=== PATIENT | male | born 1950 | race Hispanic/Latino ===

== ENCOUNTER 2018-08-08 16:07 | Inpatient (IN) | payer MEDICARE, SELFPAY ==
[~2018-08-08 16:07] MED LIST: ISOVUE-370 76%-LOCM 1 ML ONE
[2018-08-08 16:25] LABS: #Basophils 0.1 thou/uL (0.0-0.2); #Eosinphils 0.1 thou/uL (0.0-0.7); #Lymphocytes 0.9 thou/uL (1.20-3.40); #Monocytes 0.3 thou/uL (0.11-0.59); #Neutrophils 8.3 thou/uL (1.40-6.50); %Basophils 0.6 % (0.0-1.0); %Eosinophils 0.5 % (0.0-10.0); %Lymphocytes 9.3 % (21.0-51.0); %Monocytes 3.6 % (0.0-10.0); %Neutrophils 86.1 % (42.0-75.0); Hemoglobin 14.4 g/dL (14.0-18.0); Mean Corpuscular HGB CONC 32.9 g/dL (32.0-36.0); Mean Corpuscular Hemoglobin 30.1 pg (27.0-31.0); Mean Corpuscular Volume 91.6 fL (78.0-98.0); Mean Platelet Volume 7.7 fL (7.4-10.4); Platelet Count 262 thou/uL (130-400); RBC Distribution Width 11.8 % (11.5-14.5); Red Blood Cell (RBC) Count 4.77 mill/uL (4.70-6.10); White Blood Cell (WBC) Count 9.6 thou/uL (4.8-10.8)
--- NOTE | 2018-08-08 16:31 | CT ---
CT BRAIN NONCONTRAST: DATE: 08/08/18 TIME: 1621 hours HISTORY: Male patient of unknown age with altered mental status, confusion, right upper extremity drift, and a phasia. Dr. West verbally gave this Level II stroke alert protocol STAT to Dr. Andre Ramirez of the emergency department at 1624 hours on 08/08/18. FINDINGS: There is no midline shift or any other mass effect. There is no evidence of acute intracranial hemor rhage, large cortical infarct, obstructive hydrocephalus, or extraaxial fluid collection. The calvar ium is intact. IMPRESSION: No acute intracranial findings. CODE CR. jn [] POS: [facility]
[2018-08-08 16:32] LABS: PTT 33.5 SEC (22.9-36.1); Prothrombin Time 13.8 SEC (12.0-14.7)
[2018-08-08 16:35] LABS: INR-International Normal Ratio 1.1
[2018-08-08 16:43] LABS: ALT (SGPT) 15 U/L (8-55); AST (SGOT) 15 U/L (5-34); Albumin 4.4 g/dL (3.4-4.8); Alkaline Phosphatase 101 U/L (40-150); Anion Gap 20 mmol/L (10-20); BUN (Urea Nitrogen) 24 mg/dL (8.4-25.7); Bilirubin, Total 0.4 mg/dL (0.2-1.2); CK (CPK) 166 U/L (30-200); Calc. Creatinine Clearance 0 mL/min (70-130); Carbon Dioxide 15 mmol/L (23-31); Chloride 107 mmol/L (98-107); Estimated GFR-MDRD 59; Globulin 2.9 g/dL (2.4-3.5); Glucose 355 mg/dL (80-115); Lipase 29 U/L (8-78); Protein, Total 7.3 g/dL (5.8-8.1); Sodium 137 mmol/L (136-145)
[2018-08-08 16:46] LABS: CKMB 1.7 ng/mL (0-6.6); Troponin I Less than 0.010 ng/mL (< 0.028)
--- NOTE | 2018-08-08 16:54 | CT ---
CTA HEAD AND NECK UTILIZING IV CONTRAST AND 3D REFORMATTED IMAGING: INDICATIONS: Level 2 stroke alert with altered mental status, found walking and stumbling alongside the highway, w ith right upper extremity drift and aphasia. COMPARISON: Noncontrast CT brain dated 08/08/2018. FINDINGS: No large vessel intracranial occlusion is evident. No definite hemodynamically significant stenosis, occlusion, or aneurysmal formation is demonstrated. The right vertebral artery is diminutive. The visualized basilar is patent. The hand spring repairer appear patent. No area of abnormal enhancement is demonstrat ed. There is mild to moderate atherosclerotic irregularity involving the left carotid bulb and the proxim al left internal carotid artery. Mild atherosclerotic irregularity involving the right carotid bulb and proximal right internal carotid artery. Common carotids appear patent bilaterally. Left subclav desi and right subclavian appear patent. Vertebral arteries along their cervical course appear patent . Parotid and submandibular glands are normal appearing. The visualized aerodigestive tract appears wi thin normal limits. There is scattered degenerative and osteoarthritic change. No definite acute os seous abnormality is evident. The right [place] lens has been replaced. The left [place] lens is norm al appearing. The lung apices are clear. IMPRESSION: 1. No hemodynamically significant stenosis, occlusion, or aneurysmal formation demonstrated. 2. Mild to moderate atherosclerotic irregularity involving the left carotid bulb and the left proxim al and left internal carotid arteries. 3. 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 POS: [facility]
--- NOTE | 2018-08-08 17:39 | RAD ---
CHEST ONE VIEW: Indication: Stoke alert. Comparison: None. FINDINGS: There are low lung volumes and bibasilar atelectasis. No consolidation, pleural effusion, or pneumoth orax is evident. No acute osseous abnormality is evident. IMPRESSION: Low lung volumes. POS: [facility]
[2018-08-08] MEDS ORDERED: Aspirin Chewable 81 MG TAB ONE (18:26)
[2018-08-08] MEDS ORDERED: Insulin Regular 300 UNITS/3 ML VIAL ONE (19:30)
[2018-08-08 20:15] LABS: Troponin I Less than 0.010 ng/mL (< 0.028)
[2018-08-08] MEDS ORDERED: Ondansetron ODT 4 MG TAB SL PRN (20:49)
[2018-08-08] MEDS ORDERED: Ondansetron PF 4 MG/2 ML Vial IVP PRN (20:49)
[2018-08-08] MEDS: Sodium Chloride 0.9% 1,000 ML IV SCH (21:23)
[2018-08-08 22:24] LABS: Troponin I Less than 0.010 ng/mL (< 0.028)
[2018-08-09 00:43] VITALS: BMI 34.4
[2018-08-09] MEDS ORDERED: Dextrose 5% in Water 1,000 ML IV PRN (02:04)
[2018-08-09] MEDS ORDERED: Dextrose 50% Abboject 50 ML SYRINGE SLOW IVP PRN (02:04)
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
[2018-08-09] MEDS: Sodium Chloride 0.9% 1,000 ML IV SCH (05:18)
[2018-08-09] MEDS: HumaLOG 300 UNITS/3 ML VIAL SC PRN ×4 (06:10→21:26)
[2018-08-09 06:35] LABS: Hemoglobin A1c 14.1 % (4.0-6.0)
[2018-08-09 06:43] LABS: Cardiac Risk 5.4 (Less than 4.5)
[2018-08-09 06:47] LABS: Bilirubin Negative (Negative); Blood, Urine Negative (Negative); Clarity CLEAR (Clear); Glucose, Urine (Dipstick) >=1000 mg/dL (Negative); Leukocyte Negative (Negative); Nitrite Negative (Negative); Protein, Urine (Dipstick) 30 mg/dL (Neg-Trace); Specific Gravity, Urine 1.034 (1.002-1.036); Urobilinogen 0.2 mg/dL (0.2-1.0)
[2018-08-09 06:50] LABS: Bacteria/HPF None Seen HPF (None Seen); Hyaline Casts/LPF 0-3 HYALINE CAST LPF (0-3 Hyaline); RBC/HPF 0-3 HPF (0-3); Squamous Epithelial 0-3 HPF (0-3); WBC/HPF 0-3 HPF (0-3)
[2018-08-09 07:02] LABS: Amphetamine Not Detected (NotDetected); Barbiturates Screen Not Detected (NotDetected); Benzodiazepine Screen Not Detected (NotDetected); Cocaine Metabolite Screen Not Detected (NotDetected); Medtox Control Line Valid? VALID (VALID); Medtox Reader # READER 4; Methadone Not Detected (NotDetected); Methamphetamine Not Detected (NotDetected); Opiate Screen Not Detected (NotDetected); Oxycodone Screen Not Detected (NotDetected); Phencyclidine (PCP) Not Detected (NotDetected); THC/Cannabinoid Screen Not Detected (NotDetected); Tricyclic Screen Not Detected (NotDetected)
[2018-08-09] MEDS: Aspirin 325 mg Enteric Coated Tablet PO SCH (09:14)
[2018-08-09] MEDS: Insulin Glargine 8 UNITS in Pre-Filled Syringe 1 EACH SC SCH (09:16)
--- NOTE | 2018-08-09 20:00 | MRI ---
NONCONTRAST MRI BRAIN: 08/09/18 HISTORY: Altered mental status and confusion. Right upper extremity drift, aphasia. FINDINGS: There are small focal areas of restricted diffusion within the water shed distributions of the left c erebral hemisphere predominantly in a supraventricular location suggesting recent infarction which ma y be related to embolic type phenomenon or hypoperfusion. Some of the signal abnormalities are cortic ally based, and other areas are within the white matter. No signal abnormalities are seen in the right cerebral hemisphere. The septum pellucidum and third ve ntricle are in the midline. The ventricular system is normal in size, shape and position. The distal right vertebral artery is smaller in caliber compared to the left vertebral artery flow void. Otherwi se appropriate flow voids demonstrated at the base of the brain. [place] lens on the right is not visualized. The globes otherwise have a normal appearance. Minimal mu cosal thickening is seen in a few ethmoidal air cells bilaterally. Skull base has a normal MRI appear ance. IMPRESSION: Scattered recent infarctions in the water shed distribution in a supraventricular location left cereb ral hemisphere which may be related to either embolic type phenomenon versus hypoperfusion. POS: [facility]
[2018-08-09] MEDS: Atorvastatin Calcium 40 MG TAB PO SCH (21:26)
--- NOTE | 2018-08-10 00:42 | CON ---
DATE OF CONSULTATION: 08/09/2018 NEUROLOGY CONSULTATION CONSULTING PHYSICIAN: Hospitalist Services. IMPRESSION: 1. Probable left MCA TIA. 2. Renal cell carcinoma with possible hypercoagulable state. 3. Hypertension. 4. Diabetes. PLAN: 1. Aspirin 325 mg per day. 2. Continue Lipitor. 3. Review echocardiogram. HISTORY OF PRESENT ILLNESS: Mr. Cabello is a 68-year-old gentleman with the above-noted problems. 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 When he got to the way station, he realized he could not find the words he needed to tell the person at the gate. He went ahead and tried to dump a load of the truck and realized that he could not remember, which switch controls the truck bed. He then decided he would try to get himself home. He was driving self until he got to around [place]. He apparently pulled the truck over and started walking. He has some patchy memories of all these events. He noted that when he got to the emergency room, he was having trouble using his right arm. His noted that he had very limited speech output. He had CT and CTA done, nothing remarkable was found. By around 3 o'clock in the afternoon, his symptoms cleared. They had started probably around 7 in the morning. He has never had anything like this before. He did not have any associated headache, nausea, vomiting or vertigo. His blood sugars were in the 200s. His toxicology screen was negative. PAST MEDICAL HISTORY: As listed above. ALLERGIES: SHELLFISH. SOCIAL HISTORY: No tobacco or alcohol use. FAMILY HISTORY: Noncontributory. MEDICATIONS: Medication list was reviewed. REVIEW OF SYSTEMS: Ten-system review of systems was otherwise negative. PHYSICAL EXAMINATION: GENERAL: He is a somewhat overweight elderly man, in no acute distress. VITAL SIGNS: Blood pressure 181/75, pulse 72, respirations 16, and temperature 97.7. HEENT: Pupils are equal and reactive. Conjunctiva clear. Oropharynx clear. NECK: Supple. No lymphadenopathy. EXTREMITIES: No cyanosis, clubbing, or edema. NEUROLOGIC: Alert and cooperative. Speech is fluent and clear. Exam is nonfocal. SUMMARY: A 68-year-old gentleman with some transient deficits, which would seemingly be consistent with a left MCA TIA. On my review of the MRI, there are two small patchy areas of ischemia in the left MCA territory. His diffusion images do not show anything definitive. Overall, I think addressing the possibility of a stroke would be most appropriate as subclinical seizure would be a consideration as well. Job ID: [id number]
[2018-08-10] MEDS: Insulin Glargine 8 UNITS in Pre-Filled Syringe 1 EACH SC SCH (08:37)
[2018-08-10] MEDS: Aspirin 325 mg Enteric Coated Tablet PO SCH (08:38)
[2018-08-10] MEDS: HumaLOG 300 UNITS/3 ML VIAL SC PRN ×3 (12:20→21:49)
--- NOTE | 2018-08-10 13:31 | CT ---
CTA HEAD AND NECK UTILIZING IV CONTRAST AND 3D REFORMATTED IMAGING: INDICATIONS: Level 2 stroke alert with altered mental status, found walking and stumbling alongside the highway, w ith right upper extremity drift and aphasia. COMPARISON: Noncontrast CT brain dated 08/08/2018. FINDINGS: No large vessel intracranial occlusion is evident. No definite hemodynamically significant stenosis, occlusion, or aneurysmal formation is demonstrated. The right vertebral artery is diminutive. The visualized basilar is patent. The ferry terminal agent appear patent. No area of abnormal enhancement is demonstrat ed. There is mild to moderate atherosclerotic irregularity involving the left carotid bulb and the proxim al left internal carotid artery. Mild atherosclerotic irregularity involving the right carotid bulb and proximal right internal carotid artery. Common carotids appear patent bilaterally. Left subclav desi and right subclavian appear patent. Vertebral arteries along their cervical course appear patent . Parotid and submandibular glands are normal appearing. The visualized aerodigestive tract appears wi thin normal limits. There is scattered degenerative and osteoarthritic change. No definite acute os seous abnormality is evident. The right upper [place] lens has been replaced. The left upper mattaponi lens is norm al appearing. The lung apices are clear. IMPRESSION: 1. No hemodynamically significant stenosis, occlusion, or aneurysmal formation demonstrated. 2. Mild to moderate atherosclerotic irregularity involving the left carotid bulb and the left proxim al and left internal carotid arteries. 3. 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
--- NOTE | 2018-08-10 15:13 | PDOC.PN ---
- Subjective Encounter Start Date: 08/10/18 Encounter Start Time: 15:10 Subjective: f/u for ? CVA/TIA in L MCA territory on ASA/Lipitor. Echo pending -: and pt feels ok. Ambulated with PT down [place]. Tolerating po. - Objective MAR Reviewed: Yes Vital Signs & Weight: Vital Signs (12 hours) Temp Pulse Resp BP Pulse Ox 08/10/18 11:58 98.3 F 87 18 150/76 H 95 08/10/18 08:37 98 08/10/18 07:59 97.7 F 90 16 139/74 98 08/10/18 04:00 97.6 F 67 19 105/72 96 Weight Weight 253 lb 11.2 oz I&O: 08/09/18 08/10/18 08/11/18 06:59 06:59 06:59 Intake Total 1251 960 Balance 1251 960 Result Diagrams: 08/08/18 16:15 08/08/18 16:16 Additional Labs: Accuchecks 08/10/18 08/10/18 08/09/18 10:42 06:10 20:05 POC Glucose 291 H 173 H 189 H 08/09/18 16:27 POC Glucose 256 H Laboratory Tests 08/09/18 08/09/18 05:54 05:54 Hemoglobin A1c 14.1 H Triglycerides 123 Cholesterol 151 LDL Cholesterol, Calc 98 HDL Cholesterol 28 Radiology Reviewed by me: Yes (MRI Brain - ? subacute/acute infarctions in L cerebral hemisphere) EKG Reviewed by me: Yes (Tele - SR) Phys Exam - Physical Examination Constitutional: NAD HEENT: PERRLA, sclera anicteric, oral pharynx no lesions Neck: no nodes, no JVD, supple, full ROM Respiratory: no wheezing, no rales, no rhonchi, clear to auscultation bilateral S1, S2 Cardiovascular: RRR, no significant murmur, no rub, gallop Gastrointestinal: soft, non-tender, no distention, positive bowel sounds Musculoskeletal: no edema, pulses present Neurological: normal sensation, moves all 4 limbs Psychiatric: A&O x 3 Skin: normal turgor, cap refill <2 seconds Dx/Plan (1) CVA (cerebral vascular accident) Code(s): I63.9 - CEREBRAL INFARCTION, UNSPECIFIED Status: Acute Qualifiers: Laterality of affected vessel: left Comment: Suspected acute/subacute L MCA territorial involvement, continue ASA, Lipitor, DM and HTN mgmt (2) DM hyperosmolarity type II, uncontrolled Code(s): E11.00 - TYPE 2 DIAB W HYPROSM W/O NONKET HYPRGLY-HYPROS COMA ([facility]); E11.65 - TYPE 2 DIABETES MELLITUS WITH HYPERGLYCEMIA Status: Chronic Comment : Continue Metformin, Endocrinology follow up as outpt for tighter regimen (3) HTN (hypertension) Code(s): I10 - ESSENTIAL (PRIMARY) HYPERTENSION Status: Chronic Qualifiers: Hypertension type: essential hypertension Qualified Code(s): I10 - Essential (primary) hypertension Comment: Resume home regimen of Lisinopril/Losartan (4) HLD (hyperlipidemia) Code(s): E78.5 - HYPERLIPIDEMIA, UNSPECIFIED Status: Chronic Comment: Continue Lipitor 40mg HS - Plan plan discussed w/ family, geriatric social worker, out of bed/ambulate, DVT proph w/SCDs Stable currently -: Continue ASA/Lipitor -: Resume Lisinopril/Losartan -: Stroke protocol -: Await 2D echo results * Likely home in am
[2018-08-10] MEDS: Gemfibrozil 600 MG TAB PO SCH (16:16)
[2018-08-10] MEDS: metFORMIN 500 MG TAB PO SCH (21:48)
[2018-08-10] MEDS: Atorvastatin Calcium 40 MG TAB PO SCH (21:49)
[2018-08-11] MEDS: HumaLOG 300 UNITS/3 ML VIAL SC PRN (06:19)
[2018-08-11] MEDS ORDERED: Glimepiride 4 MG TAB PO SCH (08:00)
[2018-08-11] MEDS: Insulin Glargine 8 UNITS in Pre-Filled Syringe 1 EACH SC SCH (08:16)
[2018-08-11] MEDS: Gemfibrozil 600 MG TAB PO SCH (08:17)
[2018-08-11] MEDS: metFORMIN 500 MG TAB PO SCH (08:17)
[2018-08-11] MEDS: Aspirin 325 mg Enteric Coated Tablet PO SCH (08:17)
[2018-08-11] MEDS ORDERED: Tamsulosin HCl 0.4 MG CAP PO SCH (09:00)
[2018-08-11] MEDS ORDERED: Losartan 25 MG TAB PO SCH (09:00)
[2018-08-11 09:07] VITALS: BP 144/70; TEMP 97.8
--- NOTE | 2018-08-12 03:53 | DIS ---
DATE OF ADMISSION: 08/08/2018 DATE OF DISCHARGE: 08/11/2018 DISCHARGE DIAGNOSES: 1. Acute ischemic cerebrovascular accident of left middle cerebral artery territory, mild. 2. Diabetes mellitus type 2, uncontrolled. 3. Hypertension, stable. 4. Hyperlipidemia, stable. CONSULTATIONS: Dr. Luke Hung with Neurology Service. PERTINENT LAB AND X-RAY FINDINGS: Hemoglobin A1c 14.1, LFTs within normal limits. Troponin I negative x3. Lipase 29. Total cholesterol 151, triglycerides 123, HDL 28, LDL 98. Urine drug screen dated 08/09/2018, negative. Portable chest x-ray dated 08/08/2018 showed no acute cardiopulmonary process. CT imaging of the brain dated 08/08/2018 showed no acute intracranial process. CT angiogram of the head and neck dated 08/08/2018 showed no hemodynamically significant stenosis, occlusion, or aneurysm. Mmza-jx-eoqkefzv atherosclerotic plaque in the left carotid bulb and left internal carotid artery. MRI of the brain dated 08/09/2018 showed acute/subacute infarction in the distribution of the supraventricular location of the left cerebral hemisphere. 2D transthoracic echocardiogram dated 08/10/2018 showed ejection fraction of 60% to 65%. Mild diastolic dysfunction. HOSPITAL COURSE: The patient was admitted to the stroke unit who initially presented with altered mental status with apparent right-sided arm and leg weakness. The patient underwent neuroimaging to include CT and MRI imaging with MRI showing evidence of mild CVA changes in the left cerebral hemisphere and MCA territory. The patient was placed on aspirin 325 mg daily and Lipitor 40 mg daily. The patient underwent general stroke protocol with the remainder of testing essentially negative. The patient was evaluated by the Neurology Service with recommendations for medical management. The patient exhibited no specific unilateral deficits with resolution of all symptoms by the time of discharge. The patient was noted with uncontrolled diabetes mellitus type 2 with recommendations for tighter glycemic control and with recommendations for outpatient followup with his primary electric razor mechanic. I have examined the patient at time of discharge and discussed followup instructions. The patient overall clinically stable and ready for discharge on 08/11/2018. DISCHARGE MEDICATIONS: 1. Lopid 600 mg p.o. b.i.d. 2. Amaryl 4 mg p.o. daily. 3. Cozaar 25 mg p.o. daily. 4. Metformin 500 mg p.o. b.i.d. 5. Tamsulosin 0.4 mg p.o. daily. 6. Enteric-coated aspirin 325 mg p.o. daily. 7. Lipitor 40 mg p.o. daily. FOLLOWUP: The patient may follow up with his primary care provider, Dr. Flavia Nelson within 7 days of discharge. The patient may follow up with Dr. Lewis with Endocrinology service within a week of discharge. CONDITION ON DISCHARGE: Stable. ACTIVITY: Ad-symone. DIET: ADA and heart healthy. CODE STATUS: Full. DISPOSITION: Home on 08/11/2018. TIME SPENT: Total time preparing and coordinating discharge, 32 minutes. Job ID: [id number]
== END 2018-08-11 10:52 | disposition home or self-care (01) | DRG 64 ==
LOC: EDBD 16:07 → ERS 16:07 → 2SE 20:50
PROVIDERS: ADMIT Emergency Medicine; ATTEND Emergency Medicine
DX: I63.89 Other cerebral infarction (principal); E11.00 Type 2 diabetes mellitus with hyperosmolarity without nonketotic hyperglycemic-hyperosmolar coma (NKHHC); G93.41 Metabolic encephalopathy; C64.9 Malignant neoplasm of unspecified kidney, except renal pelvis; R29.711 NIHSS score 11; E78.5 Hyperlipidemia, unspecified; I10 Essential (primary) hypertension; Z90.5 Acquired absence of kidney; Z79.84 Long term (current) use of oral hypoglycemic drugs; Z91.013 Allergy to seafood
CPT/HCPCS: 36415; 36416; 70450; 70496; 70498; 70551; 71045; 80053; 80061; 80306; 81001; 82550; 82553; 83036; 83690; 85025; 85610; 85730; 93005; 93306; 94760; 96361; 96374; J1815; J1825; Q9966

== ENCOUNTER 2018-10-27 22:14 | Emergency (ER) | payer MEDICARE ==
--- NOTE | 2018-10-27 23:17 | CT ---
FACIAL BONE CT SCAN WITHOUT IV CONTRAST: History: Injury following a fall. FINDINGS: There is some focal soft tissue swelling over the bridge of the nose. No evidence for definitive nasa l bone fracture. There appears to be injury to the right eyelid region with laceration. The orbits ap pear unremarkable. No evidence for acute facial bone fracture. Left sided nasal septal deviation and nasal septal spur with some congestion of the right middle and inferior nasal turbinates with some mi ld right sided maxillary sinus mucosal disease. IMPRESSION: Soft tissue swelling over the bridge of the nose without acute fracture. Soft tissue injury in the re gion of the right eyelid. Minimal sinus mucosal disease and some right sided nasal turbinate congesti on. Unremarkable orbits. No evidence for acute facial bone fracture. POS: [facility]
--- NOTE | 2018-10-27 23:20 | RAD ---
EXAM: CHEST ONE VIEW: History: Injury from a fall. Comparison: 08-08-18 FINDINGS: Heart size is within normal limits. Mild chronic appearing linear changes in the left base, stable. N o confluent pneumonia, overt edema, or pleural effusion. IMPRESSION: Mild stable chronic changes in the left lung base. Atherosclerosis of the aorta. No acute intrathorac ic process. POS: [facility]
[2018-10-28] MEDS ORDERED: Acetaminophen 500 MG TAB ONE ×2 (01:06→01:09)
== END 2018-10-28 01:43 | disposition short-term general hospital (02) ==
LOC: ERS 22:14
DX: S01.111A Laceration without foreign body of right eyelid and periocular area, initial encounter (principal); S20.212A Contusion of left front wall of thorax, initial encounter; S80.212A Abrasion, left knee, initial encounter; S80.211A Abrasion, right knee, initial encounter; I10 Essential (primary) hypertension; E11.9 Type 2 diabetes mellitus without complications; W01.198A Fall on same level from slipping, tripping and stumbling with subsequent striking against other object, initial encounter
CPT/HCPCS: 70486; 71046; 93005